=== PATIENT | male | born 1965 | race Caucasian/White ===

== ENCOUNTER 2021-08-20 06:39 | Emergency (ER) | payer MEDICAID ==
--- NOTE | 2021-08-20 07:41 | ED Physician Documentation ---
PD HPI CHEST PAIN - Stated complaint Stated Complaint: CHEST PAIN/SOA - Chief complaint Chief Complaint: General - History obtained from History obtained from: Patient, Family - History of Present Illness Timing - onset: Yesterday Timing - onset during: Rest Timing - duration: Days (2) Timing - details: Gradual onset, Still present, Waxing and waning Quality: Sharp, Pain Location: Right chest Radiation: Back Improved by: Rest Worsened by: Inspiration, Movement, Palpation, Position Associated symptoms: No: Shortness of air, Diaphoresis, Nausea, Vomiting, Feeling faint / dizzy, General Weakness, Palpitations, Cough Similar symptoms before: Has not had sx before Recently seen: Not recently seen - Additional information Additional information: 55-year-old type II diabetic male with a prior history of DVT has developed pain in his right chest. He states that he fell asleep on his face with both of his arms wrapped around him and his fists in the sides of his chest. He states when he woke his arms were numb and he had pain in both sides of his chest where his hands were. The pain in the left side has resolved the pain in the right side has progressed. He has pain with inspiration movement and palpation.The patient states that he is not otherwise ill. He was not ill prior to the onset of these symptoms. He is recently moved here he is a type II diabetic he has not checked his sugars in over a year and previously had been on medication he lost significant weight and his diabetes came under control he is on no medications now. The patient does admit to alcohol on a periodic use and indicates that he periodically will wake up with sweats. Review of Systems Constitutional: reports: Sweats. denies: Fever Eyes: denies: Decreased vision Ears: denies: Ear pain Nose: denies: Rhinorrhea / runny nose, Congestion Throat: denies: Sore throat Cardiac: reports: Chest pain / pressure, Pedal edema. denies: Palpitations, Calf pain Respiratory: denies: Dyspnea, Cough, Wheezing GI: denies: Abdominal Pain, Nausea, Vomiting, Constipation, Diarrhea : denies: Dysuria, Frequency, Discharge Musculoskeletal: denies: Neck pain, Back pain Neurologic: denies: Generalized weakness, Focal weakness, Numbness PD PAST MEDICAL HISTORY - Past Medical History Past Medical History: No Cardiovascular: None Respiratory: None Neuro: None Endocrine/Autoimmune: None GI: None : None HEENT: None Psych: None Musculoskeletal: None Derm: None - Past Surgical History Past Surgical History: No - Present Medications Home Medications: Ambulatory Orders Medication Instructions Recorded Confirmed Amox/Clav 875/125 [Augmentin] 1 each PO Q12H #20 tablet 08/20/21 Azithromycin [Zithromax] 250 mg PO DAILY #6 tablet 08/20/21 Rivaroxaban [Xarelto] 15 mg PO BID #42 tablet 08/20/21 - Allergies Allergies/Adverse Reactions: Allergies Allergy/AdvReac Type Severity Reaction Status Date / Time No Known Drug Allergies Allergy Verified 08/20/21 06:52 - Social History Does the pt smoke?: Yes Smoking Status: Current every day smoker Does the pt drink ETOH?: No Does the pt have substance abuse?: No - Immunizations Immunizations are current?: Yes - POLST Patient has POLST: No PD ED PE NORMAL - Vitals Vital signs reviewed: Yes (Tachycardic hypertensive and tachypneic) - General General: Alert and oriented X 3, Well developed/nourished, Other (55-year-old male clutching the right side of his chest and splinting with breathing. He appears to be in pain with mink rancher tone and flattened affect.) - HEENT HEENT: Atraumatic, PERRL, EOMI - Neck Neck: Supple, no meningeal sign, No bony TTP - Cardiac Cardiac: RRR, No murmur - Respiratory Respiratory: No respiratory distress, Clear bilaterally, Other (The patient is splinting with breathing) - Abdomen Abdomen: Soft, Non tender - Back Back: No CVA TTP, No spinal TTP - Derm Derm: Normal color, Warm and dry, No rash - Extremities Extremities: No deformity, No edema - Neuro Neuro: Alert and oriented X 3, editor at large 2-12 intact, No motor deficit, No sensory deficit, Normal speech Eye Opening: Spontaneous Motor: Obeys Commands Verbal: Oriented GCS Score: 15 - Psych Psych: Normal mood Results - Vitals Vitals: Vital Signs - 24 hr 08/20/21 08/20/21 08/20/21 06:50 06:57 07:04 Temperature 36.9 C Heart Rate 104 H 102 H 95 Respiratory 24 24 23 Rate Blood Pressure 163/108 H 128/96 H O2 Saturation 100 100 100 08/20/21 08/20/21 08/20/21 09:00 10:05 10:30 Temperature Heart Rate 89 81 92 Respiratory 22 22 26 H Rate Blood Pressure 140/84 H 145/82 H O2 Saturation 100 99 99 08/20/21 12:40 Temperature Heart Rate 75 Respiratory Rate Blood Pressure 130/63 O2 Saturation 99 Oxygen O2 Source Room air - EKG (time done) 0652 Gypsy: LAD Ischemia: Other (? PAYTON ant/lat subtle-- doubt. ) Compare to prior EKG: Old EKG unavailable Computer interpretation: Disagree with computer (I am uncertain about the computer interpretation of ST elevation. ) - Labs Labs: Laboratory Tests 08/20/21 08/20/21 08/20/21 06:50 06:50 06:50 WBC 8.6 RBC 5.74 Hgb 15.2 Hct 47.0 MCV 81.9 MCH 26.5 L MCHC 32.3 RDW 14.3 Plt Count 414 MPV 9.1 Neut # (Auto) 5.7 Lymph # (Auto) 1.8 Mcintosh # (Auto) 0.8 Eos # (Auto) 0.2 Baso # (Auto) 0.0 Absolute Nucleated RBC 0.00 Nucleated RBC % 0.0 D-Dimer Sodium 136 Potassium 4.4 Chloride 97 L Carbon Dioxide 29 Anion Gap 10.0 BUN 14 Creatinine 1.0 Estimated GFR (MDRD) 78 L Glucose 113 H Calcium 9.5 Total Bilirubin 0.5 AST 20 ALT 18 Alkaline Phosphatase 65 Troponin I High Sens 4.5 Total Protein 8.6 H Albumin 4.5 Globulin 4.1 Albumin/Globulin Ratio 1.1 Lipase 36 08/20/21 07:51 WBC RBC Hgb Hct MCV MCH MCHC RDW Plt Count MPV Neut # (Auto) Lymph # (Auto) Mcintosh # (Auto) Eos # (Auto) Baso # (Auto) Absolute Nucleated RBC Nucleated RBC % D-Dimer 572.7 H Sodium Potassium Chloride Carbon Dioxide Anion Gap BUN Creatinine Estimated GFR (MDRD) Glucose Calcium Total Bilirubin AST ALT Alkaline Phosphatase Troponin I High Sens Total Protein Albumin Globulin Albumin/Globulin Ratio Lipase - Rads (name of study) chest Radiology: Prelim report reviewed (Impression: 2.5 cm right upper lobe calcification. The terminal basis of this exam. This could represent calcific pulmonary or osseous mass. No priors are available for comparison. CT chest without contrast is recommended for further evaluation as clinically indicated.), EMP read indepedently, See rad report duplex viens Radiology: Prelim report reviewed (Impression: 1. Finding is consistent with nonocclusive deep venous thrombosis in the right external iliac vein and right common femoral vein. Occlusive venous thrombosis in right great saphenous vein. No deep DVT is visualized in the left lower extremity veins.), EMP read indepedently, See rad report Procedures - IVC sono (time) 0735 Bedside IVC sono: IVC measures (cm) (0.86), Dehydration (est 2 liter deficit) PD MEDICAL DECISION MAKING - ED course Complexity details: reviewed old records, reviewed results, re-evaluated patient, considered differential, d/w patient, d/w family ED course: Chest CT: Impression: 1.9 x 2.6 cm mass corresponding to area of opacity on chest x-ray. Central area of air is present which raises suspicion of necrosis either secondary to infection/inflammation or potential malignancy. Numerous mediastinal lymph nodes are present, possibly reactive. However malignancy cannot be excluded. Recommend correlation with patient's symptoms of possible infection or inflammation and short interval imaging follow-up after appropriate therapy to document resolution. Otherwise, in absence of those symptoms, further evaluation of potential malignancy is recommended with PET scan and/or biopsy. There is a contrast shortage currently and we were unable to perform a pulmonary angiogram. For this reason we obtained a duplex venous scan of both lower extremities showing DVT in the right lower extremity. We will place the patient on Xarelto and a course of antibiotic with follow-up to resolution. There is a significant chance of the mass in the chest being a malignancy and this being the presenting symptoms. I discussed these findings with the patient and the need for follow-up. He does give a reason for provocation of DVT of a long car trip to [facility] 6 weeks ago. He denies any pain in his leg. He does state that he has previously had a DVT about 3 years ago that was incompletely treated because he lost his insurance. Departure - Departure Disposition: 01 Home, Self Care Clinical Impression: DVT (deep venous thrombosis) Qualifiers: DVT location: lower extremity Affected thrombotic vein of extremity: femoral Chronicity: acute Laterality: right Qualified Code(s): I82.411 - Acute embolism and thrombosis of right femoral vein Pneumonia Qualifiers: Pneumonia type: due to unspecified organism Laterality: right Lung location: upper lobe of lung Qualified Code(s): J18.9 - Pneumonia, unspecified organism Condition: Stable Instructions: ED DVT, ED Pneumonia Adult Follow-Up: Leena Barrow MD [Provider Admit Priv/Credential] - Prescriptions: Amox/Clav 875/125 [Augmentin] 1 each PO Q12H #20 tablet Rivaroxaban [Xarelto] 15 mg PO BID #42 tablet Azithromycin [Zithromax] 250 mg PO DAILY #6 tablet Comments: Ibrahima, today it looks like there is a mass in your right upper chest. This may be a patch of pneumonia or a malignancy. We are treating you today for pneumonia and in addition it looks like there is a deep vein thrombosis in your right leg and we have placed you on a blood thinner. You will need to take this twice per day for 3 weeks and following that once per day. I have given you the number of a physician in [place] Dr. Scott Barrow. Follow-up is imperative as a repeat image of your chest is required and further medication for treatment of DVT is required. Medications have been e-scribed to [facility] in [place]. Discharge Date/Time: 08/20/21 12:50
[2021-08-20 07:45] LABS: BASOPHILS % (AUTO) 0.5 %; EOSINOPHILS # (AUTO) 0.2 10^3/uL (0.0-0.7); EOSINOPHILS % (AUTO) 2.6 %; HGB - HEMOGLOBIN 15.2 g/dL (14.0-18.0); LYMPHOCYTES # (AUTO) 1.8 10^3/uL (1.5-3.5); LYMPHOCYTES % (AUTO) 20.8 %; MEAN CORPUSCULAR HEMOGLOBIN 26.5 pg (27.0-31.0); MEAN CORPUSCULAR HGB CONC 32.3 g/dL (32.0-36.0); MEAN CORPUSCULAR VOLUME 81.9 fL (80.0-94.0); MEAN PLATELET VOLUME 9.1 fL (7.4-11.4); MONOCYTES # (AUTO) 0.8 10^3/uL (0.0-1.0); MONOCYTES % (AUTO) 9.8 %; NEUTROPHILS # (AUTO) 5.7 10^3/uL (1.5-6.6); NEUTROPHILS % (AUTO) 65.8 %; PLT - PLATELET COUNT 414 10^3/uL (130-450); RED BLOOD COUNT 5.74 10^6/uL (4.70-6.10); RED CELL DISTRIBUTION WIDTH 14.3 % (12.0-15.0); WHITE BLOOD COUNT 8.6 x10^3/uL (4.8-10.8)
[2021-08-20] MEDS: KETOROLAC 15 MG/ML VIAL IVP STA (07:46)
[2021-08-20] MEDS: SODIUM CHLORIDE 0.9% 1,000 ML IV STA (07:46)
[2021-08-20] MEDS: DEXAMETHASONE 10 MG/ML VIAL IVP STA (07:48)
--- NOTE | 2021-08-20 07:55 | XRAY Report ---
PROCEDURE: Chest 1 View X-Ray INDICATIONS: chest pain TECHNIQUE: One view of the chest was acquired. COMPARISON: None FINDINGS: Surgical changes and devices: None. Lungs and pleura: 5 cm calcification overlying the lobe. Mediastinum: Mediastinal contours appear normal. Heart size is normal. Bones and chest wall: No suspicious bony lesions. Overlying soft tissues appear unremarkable. IMPRESSION: 2.5 cm right upper lobe calcification. The terminal basis of this exam. This could represent calcifie d pulmonary or osseous mass. No priors are available for comparison. CT chest without contrast is rec ommended for further evaluation as clinically indicated. Reviewed by: Joselyn Adams MD on 08/20/2021 7:53 AM PDT Approved by: Joselyn Adams MD on 08/20/2021 7:53 AM PDT Station ID: [id number]
[2021-08-20 07:58] LABS: ALBUMIN 4.5 g/dL (3.2-5.5); ALBUMIN/GLOBULIN RATIO 1.1 (1.0-2.2); BILIRUBIN,TOTAL 0.5 mg/dL (0.2-1.0); CALCIUM 9.5 mg/dL (8.5-10.3); POTASSIUM 4.4 mmol/L (3.5-5.0); TOTAL PROTEIN 8.6 g/dL (6.7-8.2)
--- NOTE | 2021-08-20 09:00 | CT Report ---
PROCEDURE: CHEST WO INDICATIONS: R sided mass TECHNIQUE: Noncontrast 1mm axial images were acquired from the pulmonary apices to the posterior costophrenic an gles. Axial 5 mm soft tissue kernel reconstructions were performed as well as 8 mm axial MIP and cor onal and sagittal 5 mm reformations. For radiation dose reduction, the following was used: automate d exposure control, adjustment of mA and/or kV according to patient size. COMPARISON: Chest x-ray 08/20/2021 FINDINGS: Image quality: Excellent. Lungs and pleura: There is increased opacity identified on chest x-ray corresponds to a right upper l obe mass measuring 1.9 x 2.6 cm. The mass is in direct approximation to the lateral pleura. There is central focus of air. Streaky opacity is present within the right base as well as lateral aspect of t he left lower lobe. No pleural effusions or pneumothorax. Central and peripheral airways are patent and normal in caliber. Mediastinum: Heart size is normal. No pericardial effusion. No mediastinal adenopathy by size crit eria. However, numerous mediastinal lymph nodes are present. Thoracic aorta and central pulmonary art eries are normal in size. Esophagus is normal in caliber. No hiatal hernia. Bones and chest wall: No suspicious bony lesions. No vertebral body compression fractures. No axil gabriele or supraclavicular adenopathy by size criteria. The thyroid is normal in size and there are no incidental findings. Abdomen: Visualized upper abdominal solid organs and bowel loops appear normal in the absence of con trast. IMPRESSION: 1.9 x 2.6 cm mass corresponding to area of opacity on chest x-ray. Central area of air is present whi ch raises suspicion of necrosis either secondary to infection/inflammation or potential malignancy. N umerous mediastinal lymph nodes are present, possibly reactive. However, malignancy cannot be exclude d. Recommend correlation patient's symptoms of possible infection or inflammation and short interval imaging follow-up after appropriate therapy to document resolution. Otherwise, in absence of those sy mptoms, further evaluation of potential malignancy is recommended with PET scan and/or biopsy. CLINICAL RECOMMENDATION STATEMENTS: In patients <35 years with an ITN detected on CT, MRI, or extrathyroidal ultrasound, the Committee re commends further evaluation with dedicated thyroid ultrasound if the nodule is "e1 cm and has no susp icious imaging features, and if the patient has normal life expectancy. In patients "e35 years with an ITN detected on CT, MRI, or extrathyroidal ultrasound, the Committee r ecommends further evaluation with dedicated thyroid ultrasound if the nodule is "e1.5 cm and has no s uspicious imaging features, and if the patient has normal life expectancy. (ACR, 2014) Reviewed by: Joselyn Adams MD on 08/20/2021 8:59 AM PDT Approved by: Joselyn Adams MD on 08/20/2021 8:59 AM PDT Station ID: [id number]
--- NOTE | 2021-08-20 09:44 | Ultrasound Report ---
PROCEDURE: Duplex Ext Veins Bilateral INDICATIONS: J Plastino TECHNIQUE: Real-time imaging, as well as color and pulse Doppler interrogation, were performed of the deep veins of both legs from the inguinal ligament to the popliteal fossa. COMPARISON: None. FINDINGS: Intraluminal filling defects are seen in right common femoral vein and right external iliac vein. Intraluminal filling defects are also seen within right great saphenous vein with absence of f low. No filling defects are seen in right superficial femoral vein, popliteal vein or calf veins and show normal compressibility and respiratory variation and augmentation. No filling defects are seen i n left lower extremity veins. IMPRESSION: 1. Finding is consistent with nonocclusive deep venous thrombosis in right external iliac vein and ri ght common femoral vein. 2. Occlusive venous thrombosis in right great saphenous vein. 3. No DVT is seen in visualized left lower extremity veins. Reviewed by: Kaden Henley MD on 08/20/2021 9:43 AM PDT Approved by: Kaden Henley MD on 08/20/2021 9:43 AM PDT Station ID: [id number]
[2021-08-20] MEDS: cefTRIAXone 1 GM in SODIUM CHLORIDE 0.9% MINIBAG 100 ML IV STA (10:05)
[2021-08-20] MEDS: ENOXAPARIN 100 MG/ML SYRINGE SUBQ STA (10:50)
[2021-08-20] MEDS: AZITHROMYCIN INJ 500 MG in SODIUM CHLORIDE 0.9% 250 ML IV STA (10:57)
[2021-08-20 13:18] VITALS: BP 130/63
== END 2021-08-20 12:50 | disposition home or self-care (01) ==
LOC: ED 06:39
DX: I82.411 Acute embolism and thrombosis of right femoral vein (principal); J18.9 Pneumonia, unspecified organism; F17.200 Nicotine dependence, unspecified, uncomplicated
CPT/HCPCS: 36415; 71045; 71250; 80053; 83690; 84484; 85025; 85379; 93005; 93970; 96365; 96372; 96375; 99284; 99285; J1650

== ENCOUNTER → 2021-09-18 | Outpatient (CLI) | payer OTHER, MEDICAID | END | disposition short-term general hospital (02) | LOC: EMS 18:47 | DX: S99.912A Unspecified injury of left ankle, initial encounter (principal); M54.50 Low back pain, unspecified; R10.9 Unspecified abdominal pain; V13.4XXA Pedal cycle driver injured in collision with car, pick-up truck or van in traffic accident, initial encounter; Y93.55 Activity, bike riding; Y92.480 Sidewalk as the place of occurrence of the external cause; Z79.02 Long term (current) use of antithrombotics/antiplatelets | CPT/HCPCS: A0425; A0427 ==

== ENCOUNTER 2022-06-08 09:56 | Outpatient (CLI) | payer MEDICAID | END 2022-06-08 09:57 | disposition critical access hospital (66) | LOC: EMS 09:56 | DX: I46.9 Cardiac arrest, cause unspecified (principal) | CPT/HCPCS: A0425; A0427; A0999 ==

== ENCOUNTER 2022-06-08 10:13 | Emergency (ER) | payer MEDICAID ==
--- NOTE | 2022-06-08 10:49 | ED Physician Documentation ---
PD HPI DYSPNEA - Stated complaint Stated Complaint: SOA - Chief complaint Chief Complaint: Critical Care - History obtained from History obtained from: EMS - Additional information Additional information: The patient is brought to the emergency department by EMS for chief complaint of dyspnea. EMS states that the sister called them after finding the patient on the floor, awake, but complaining of shortness of breath. The patient was extremely anxious when EMS got him and heart rate was up in the 1 teens. The patient became increasingly anxious and just before arriving in the emergency department, they noticed that he turned blue and lost pulses. CPR was initiated and is ongoing at the time of arrival. EMS states they did not have time to determine what rhythm the patient had at the time of arrest. The patient is not able to offer any information as he is completely unconscious. The family is also not present. The patient apparently does have a history of DVT for which she has been treated with anticoagulants. He also has a history of diabetes. Blood sugar was 179 en route. No known use of any substances. PD PAST MEDICAL HISTORY - Past Medical History Cardiovascular: None Respiratory: None Neuro: None Endocrine/Autoimmune: None GI: None : None HEENT: None Psych: None Musculoskeletal: None Derm: None - Past Surgical History Past Surgical History: No - Present Medications Home Medications: Ambulatory Orders Medication Instructions Recorded Confirmed Amox/Clav 875/125 [Augmentin] 1 each PO Q12H #20 tablet 08/20/21 Azithromycin [Zithromax] 250 mg PO DAILY #6 tablet 08/20/21 Rivaroxaban [Xarelto] 15 mg PO BID #42 tablet 08/20/21 - Allergies Allergies/Adverse Reactions: Allergies Allergy/AdvReac Type Severity Reaction Status Date / Time No Known Drug Allergies Allergy Verified 08/20/21 06:52 - Social History Does the pt smoke?: Yes Smoking Status: Current every day smoker Does the pt drink ETOH?: No Does the pt have substance abuse?: No - Immunizations Immunizations are current?: Yes - POLST Patient has POLST: No PD ED PE NORMAL - Vitals Vital signs reviewed: Yes - General General: Other (Unconscious patient who is cyanotic; completely unresponsive.) - HEENT HEENT: Atraumatic, Other (Pupils fixed and dilated) - Cardiac Cardiac: Other (No heart sounds or pulses) - Respiratory Respiratory: Other (No spontaneous respiratory effort. Lungs are clear bilaterally with bagging) - Abdomen Abdomen: Other (Obese, distended) - Derm Derm: Other (Lukewarm, cyanotic face, mottling in the neck) - Extremities Extremities: No deformity, No edema - Neuro Neuro: Other (No neurologic activity whatsoever) Results - Vitals Vitals: Oxygen O2 Source Room air Procedures - Intubation - Major Provider: Emergency physician Blade: Chappell Tube: Size-enter number (7.5), Cuffed, Marked at teeth-enter cm (21) Route: Oral Confirmation: Direct visualization, Bilateral breath sounds, No abdominal breath sound, End tidal CO2 Complications: No compications PD Medical Decision Making - ED course Complexity details: considered differential, d/w family ED course: The patient arrived with CPR in progress and CPR was continued throughout the patient's entire stay in the emergency department. He was given multiple doses of epinephrine over a nearly 30-minute period, as well as 300 mg of amiodarone, 100 mg of lidocaine, a total of 2 amps of bicarbonate, and 2 g of magnesium. The patient was found to be in either asystole or PEA the entire time and had absolutely no response to any of the interventions we have tried. The patient was intubated by myself and For the time being, kept on 100% FiO2 and bagging, since we had not yet gotten ROSC. He was put on the Raf device to ensure consistent compressions throughout the entire resuscitation effort. I did consider the possibility of a massive PE, but realistically, even if we were to attempt thrombolysis, between the time to mix the medication, the time to infuse it, and the extended period of time until which it would actually have likelihood of effectiveness, this would not have produced return of circulation in a manner timely enough to prevent irreversible ischemic damage to both the heart and brain, given that the non-perfusing rhythm would likely continue without and even probably in spite of immediate christianity of flow after prolonged need for resuscitation. As such, I did not feel this would be an acutely useful adjunct in terms of achieving ROSC, and the patient had already had a prolonged resuscitation. At this point in time, it had been nearly 30 minutes since arrest and immediate initiation of CPR and the patient was not responding to high-quality CPR, oxygenation, and multiple medications for resuscitation and as such, I did call his time of at 10:39 AM. 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 - Critical Care Time(min): 40 Comments: Critical care time was necessary, secondary to active life-threatening decline in the form of cardiac arrest and respiratory arrest. Time Includes: Direct patient care, Review records, Reassess patient, Document care, Coordinate care, See progress note Data interpretation: Cardiac output, See progress note Procedures included in critical care time: Ventilator mgmt Procedures excluded from critical care time: Intubation, CPR, See progress note Departure - Departure Disposition: 20 Clinical Impression: Cardiac arrest Condition: Critical
== END 2022-06-08 11:41 | disposition expired ==
LOC: EDUNIT# → ED 10:13
DX: I46.9 Cardiac arrest, cause unspecified (principal); F17.200 Nicotine dependence, unspecified, uncomplicated
CPT/HCPCS: 31500; 36415; 92950; 99291